=== PATIENT | female | born 1970 | race Caucasian/White ===

== ENCOUNTER 2025-01-21 11:03 | Emergency (ER) | payer OTHER ==
[~2025-01-21] VITALS: Ht 162.6 cm; Wt 77.3 kg
[2025-01-21 11:12] VITALS: BP 140/76; PULSE 87; RESP 18; TEMP 98; O2SAT 99
[2025-01-21] MEDS ORDERED: VALA10002 PO (14:01)
[2025-01-21] MEDS ORDERED: GABA-1181 PO (14:01)
[2025-01-21] MEDS ORDERED: OXYC-38 PO (14:02)
[2025-01-21] MEDS: GABAPENTIN 300 MG CAPSULE PO ONE (14:24)
[2025-01-21] MEDS: ValACYclovir HCL 500 MG TABLET PO ONE (14:24)
== END 2025-01-21 14:29 | disposition home or self-care (01) ==
LOC: EMS 11:03
DX: B02.9 Zoster without complications (principal); Z79.624 Long term (current) use of inhibitors of nucleotide synthesis; Z79.899 Other long term (current) drug therapy
CPT/HCPCS: 99283